=== PATIENT | male | born 1960 | race Caucasian/White ===

== ENCOUNTER → 2024-05-13 07:17 | Outpatient (REF) | payer OTHER, SELFPAY | LOC: RAD 07:17 | PROVIDERS: ATTENDING PHYSICIAN Physician Assistant Medical | DX: M25.511 Pain in right shoulder (principal); C49.3 Malignant neoplasm of connective and soft tissue of thorax; F17.200 Nicotine dependence, unspecified, uncomplicated | CPT/HCPCS: 71260; Q9967 ==